=== PATIENT | male | born 1995 | race Caucasian/White ===

== ENCOUNTER 2018-01-22 12:52 | Emergency (ER) | payer OTHER ==
[~2018-01-22] VITALS: Ht 172.7 cm; Wt 61.2 kg
--- NOTE | ~2018-01-22 | EKG ---
[address] [address] [place] [address] ELECTROCARDIOGRAM REPORT Name: PITER AKINS Room #: DEP MOHINI Patel#: [id number] Admission: 01/22/18 Attend Phys: Discharge: 01/22/18 Date of : [birth year] Report #: [id number] THIS REPORT FOR: //name// [facility] ED Test Date: 2018-01-22 Test Time: 12:57:30 Pat Name: PITER AKINS Department: Room: Gender: M C[employer] Fe[employer]: GAGAN : 1995 Requested By: Order Number: [id number] MD: Jayson Tomlin Measurements Intervals [place] Rate: 94 P: 76 NV: 148 QRS: 59 QRSD: 111 T: -15 QT: 328 QTc: 411 Interpretive Statements Sinus rhythm RSR' in V1 or V2, right VCD No previous ECG available for comparison Electronically Signed On 01-23-2018 7:41:07 CDT by Jayson Tomlin [email or web address] <ELECTRONICALLY SIGNED> By: Jayson Tomlin MD, [facility] 01/23/18 [id number] [id number] Jayson Tomlin MD, FACC /EPI
[2018-01-22 13:28] LABS: ABSOLUTE NEUTROPHILS 3.7 thou/uL (1.4-8.2); BASOPHILS 0.6 % (0.0-2.0); HEMATOCRIT 38.7 % (42.0-52.0); HEMOGLOBIN 13.7 gm/dL (14.0-18.0); LYMPHOCYTES 20.9 % (24.0-44.0); MCH 31.2 pg (26.0-34.0); MCHC 35.5 g/dL (28.0-37.0); MCV 87.8 fL (80.0-100.0); MONOCYTES 10.9 % (1.0-8.0); PLATELET COUNT 119 thou/uL (150-400); POLYS 67.6 % (36.0-66.0); RDW 12.2 % (10.5-14.5); WBC 5.5 thou/uL (4.0-11.0)
[2018-01-22 13:30] LABS: CALCIUM 8.6 mg/dL (8.5-10.1); CREATININE 1.1 mg/dL (0.7-1.3); POTASSIUM 3.2 mmol/L (3.5-5.1)
[2018-01-22 14:21] LABS: URINE BILIRUBIN NEGATIVE (Negative); URINE BLOOD NEGATIVE (Negative); URINE CLARITY CLEAR; URINE COLOR YELLOW; URINE GLUCOSE-RANDOM* NEGATIVE (Negative); URINE KETONES TRACE (Negative); URINE LEUKOCYTES-REFLEX NEGATIVE (Negative); URINE NITRITE-REFLEX NEGATIVE (Negative); URINE PROTEIN (DIPSTICK) 1+ (Negative); URINE UROBILINOGEN 0.2 E.U./dl (0.2-1.0)
[2018-01-22 14:33] LABS: BACTERIA-REFLEX None Seen /HPF (None Seen); CASTS None Seen /LPF (None Seen); CRYSTALS None Seen /LPF (None Seen); SQUAMOUS None Seen /LPF (0-3); URINE RBC None Seen /HPF (0-2); URINE WBC-REFLEX 0-5 Rare /HPF (0-5)
[2018-01-22] MEDS ORDERED: DOXYCYCLINE 10100 MG PO (16:29)
[2018-01-22 17:15] VITALS: BP 97/55
== END 2018-01-22 17:16 | disposition home or self-care (01) ==
LOC: ER 12:52
PROVIDERS: Emergency Medicine
DX: J18.8 Other pneumonia, unspecified organism (principal); R11.2 Nausea with vomiting, unspecified; R19.7 Diarrhea, unspecified